=== PATIENT | female | born 1985 ===

== ENCOUNTER 2019-04-21 10:04 | Emergency (ER) | payer SELFPAY ==
[2019-04-21 10:40] LABS: Absolute Lymphocytes (CBC) 1.3 K/uL (0.7-4.9); Absolute Monocytes 0.7 K/uL (0.1-1.3); Basophils % 0.5 % (0-1.3); Eosinophils % 2.9 % (0-4.4); Hematocrit 39.1 % (36.0-45.0); Lymphocytes % 18.1 % (15.3-44.8); MPV 8.3 fL (7.6-11.3); Monocytes % 10.2 % (3.3-12.3); RBC Red Blood Cell Count 4.26 M/uL (3.86-4.86)
[2019-04-21] MEDS ORDERED: ONDANSETRON 4 MG/2 ML VIAL ONE ×2 (10:45→11:36)
[2019-04-21] MEDS ORDERED: NA CHLORIDE 0.9% 1,000 ML ONE (10:45)
[2019-04-21] MEDS ORDERED: MORPHINE 4 MG/ML SYR ONE ×2 (10:45→11:36)
[2019-04-21 10:58] LABS: Albumin 3.7 g/dL (3.4-5.0); Bilirubin Direct 0.1 mg/dL (0-0.2); Bilirubin Total 0.3 mg/dL (0.2-1.0); Potassium 3.6 mmol/L (3.5-5.1); Protein, Total 7.1 g/dL (6.4-8.2)
--- NOTE | 2019-04-21 11:31 | RAD REPORT ---
EXAM DESCRIPTION: CT - Stone Protocol - 04/21/2019 10:57 am CLINICAL HISTORY: Abdominal pain. Left flank pain COMPARISON: None. TECHNIQUE: Computed axial tomography of the abdomen pelvis was obtained without oral or IV contrast. Lack of IV and oral contrast limits evaluation of solid organs, bowel, and vessels. Coronal reformat raz images were obtained and reviewed. All CT scans are performed using dose optimization technique as appropriate and may include automated exposure control or mA/KV adjustment according to patient size. FINDINGS: A renal calculus is not seen. A bladder calculus is not present. Mild left hydronephrosis. 2 millimeter calculus left ureteral vesicle junction. The liver, spleen, pancreas and adrenals appear grossly normal There is no evidence of diverticulitis. The appendix appears normal A tiny umbilical hernia Left ovary is not well visualized but may be enlarged IMPRESSION: 2 millimeter calculus left ureterovesical junction resulting in mild left hydronephrosis Possible enlargement of the left ovary. Ultrasound recommended
[2019-04-21 11:32] LABS: Urine Blood 2+ (NEG); Urine Glucose NEGATIVE (NEG); Urine Protein NEGATIVE (NEG); Urine Specific Gravity 1.025 (1.005-1.030); Urine pH 5.5 (5.0-7.0)
--- NOTE | 2019-04-21 11:42 | ER ---
Nurse's Notes [facility] Name: Jocelynn Mcdonald Age: 33 yrs Sex: Female : 1985 Arrival Date: 04/21/2019 Time: 10:05 Bed 18 Private MD: Unknown, Unknown Diagnosis: Calculus of kidney and ureter Presentation: 04/21 10:10 Presenting complaint: Patient states: left flank pain that radiates to the left groin, sv n/v started this morning. Transition of care: patient was not received from another setting of care. Onset of symptoms was April 21, 2019. Care prior to arrival: None. 10:10 Method Of Arrival: Ambulatory sv 10:10 Acuity: CHIN 2 sv 12:48 Initial Sepsis Screen: Does the patient meet any 2 criteria? No. Patient's initial ae3 sepsis screen is negative. Does the patient have a suspected source of infection? No. Patient's initial sepsis screen is negative. 12:48 Risk Assessment: Do you want to hurt yourself or someone else? Patient reports no ae3 desire to harm self or others. Triage Assessment: 10:10 General: Appears in no apparent distress. uncomfortable, well developed, Behavior is sv cooperative, anxious. Pain: Complains of pain in left low back and posterior aspect of left lateral abdomen Pain radiates to left femoral area and left inguinal area Pain currently is 10 out of 10 on a pain scale. Neuro: Level of Consciousness is awake, alert, obeys commands, Oriented to person, place, time, situation, Gait is steady. Respiratory: Respiratory effort is even, unlabored, Respiratory pattern is regular, symmetrical. : Reports urgency. Derm: Skin is normal. 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 - Social history:: Patient/guardian denies using alcohol, street drugs, The patient lives with family, Smoking status: Patient uses tobacco products, smokes one-half pack cigarettes per day. - Family history:: not pertinent. - Ebola Screening: : Patient negative for fever greater than or equal to 101.5 degrees Fahrenheit, and additional compatible Ebola Virus Disease symptoms Patient denies exposure to infectious person Patient denies travel to an Ebola-affected area in the 21 days before illness onset. Screenin:50 Abuse screen: Denies threats or abuse. Nutritional screening: No deficits noted. ae3 Tuberculosis screening: No symptoms or risk factors identified. Fall Risk None identified. Assessment: 10:28 General: Appears uncomfortable, Behavior is cooperative, anxious, restless. Pain: ae3 Complains of pain in left low back, left mid back and abdomen Pain currently is 10 out of 10 on a pain scale. Neuro: Level of Consciousness is awake, alert, obeys commands, Oriented to person, place, time, situation, Appropriate for age. Cardiovascular: Respiratory: Airway is patent Respiratory effort is even, unlabored, Respiratory pattern is regular. GI: Abdomen is round Bowel sounds present X 4 quads. Abd is soft and non tender. GI: Reports nausea, vomiting, Patient currently denies diarrhea. : Reports burning with urination, urinary frequency. EENT: No signs and/or symptoms were reported regarding the EENT system. Derm: Skin is pink. Musculoskeletal: No signs and/or symptoms reported regarding the musculoskeletal system. 11:05 Reassessment: Patient is requesting additional pain medication, reports " I still have ae3 pain.". Pain: Pain currently is 7 out of 10 on a pain scale. 11:05 Reassessment: Provider notified of patient's pain level, new orders received. ae3 11:09 Pain: Complains of pain in abdomen Pain currently is 7 out of 10 on a pain scale. ae3 11:41 Reassessment: Pain decreased, states she keeps feeling like "I need to pee" bedside ae3 commode provided. 11:46 Reassessment: Updated patient on impending discharge, patient states she still has ae3 pain. Will continue to monitor. Vital Signs: 10:11 Pulse 74; Resp 18; Temp 97.8; Pulse Ox 99% ; Weight 86.18 kg; Height 5 ft. 1 in. sv (154.94 cm); Pain 10/10; 10:48 BP 149 / 92; Pulse 63; Resp 20; Pulse Ox 100% on R/A; ae3 11:06 BP 148 / 94; Pulse 61; Resp 19; Pulse Ox 99% on R/A; Pain 7/10; ae3 11:42 BP 148 / 99; Pulse 65; Resp 17; Pulse Ox 98% on R/A; ae3 12:46 BP 140 / 90; Pulse 78; Resp 16; Pulse Ox 100% on R/A; Pain 5/10; ae3 10:11 Body Mass Index 35.90 (86.18 kg, 154.94 cm) sv 10:11 Pt took off BP cuff, unable to tolerate at this time. sv ED Course: 10:05 Patient arrived in ED. ag5 10:06 Unknown, Unknown is Private Physician. ag5 10:11 Triage completed. sv 10:11 Arm band placed on. sv 10:13 Ya Isbell MD is Attending Physician. ma2 10:30 Radiology exam delayed due to test not completed at this time. kw1 10:38 Initial lab(s) drawn, by id, sent to lab. Urine collected: clean catch specimen, clear. 5 Inserted saline lock: 20 gauge in left antecubital area, using aseptic technique. Blood collected. 10:40 Basic Metabolic Panel Sent. 5 10:40 CBC with Diff Sent. 5 10:40 Creatinine for Radiology Sent. 5 10:40 Hepatic Function Sent. 5 10:40 Lipase Sent. 5 10:49 Placed in gown. Bed in low position. Call light in reach. Side rails up X 1. Adult w/ ae3 patient. Pulse ox on. NIBP on. Light sheet provided. 10:[address] In Process Unspecified. EDMS 11:41 Christelle Knutson MD is Referral Physician. ma2 12:49 No provider procedures requiring assistance completed. IV discontinued, intact, ae3 bleeding controlled, No redness/swelling at site. Pressure dressing applied. Administered Medications: 10:30 Drug: NS 0.9% 1000 ml Route: IV; Rate: 1 bolus; Site: left antecubital; ae3 12:00 Follow up: IV Status: Completed infusion ae3 10:30 Drug: Zofran 4 mg Route: IVP; Site: left antecubital; ae3 11:30 Follow up: Response: Nausea is decreased ae3 10:35 Drug: morphine 4 mg Route: IVP; Site: left antecubital; ae3 11:29 Follow up: Response: Pain is decreased; Patient states pain is reduced but still "hurts ae3 a lot" Reports 06/04 currently 11:20 Drug: Zofran 4 mg Route: IVP; Site: left antecubital; ae3 11:43 Follow up: Response: No adverse reaction ae3 11:23 Drug: morphine 4 mg Route: IVP; Site: left antecubital; ae3 11:43 Follow up: Response: Pain is decreased ae3 12:25 Drug: Phenergan 25 mg Route: IVP; Site: left antecubital; ae3 12:47 Follow up: Response: Nausea is decreased ae3 Intake: Outcome: 11:42 Discharge ordered by . ma2 12:49 Discharged to home via wheelchair. ae3 12:49 Condition: stable 12:49 Discharge instructions given to patient, significant other, Instructed on discharge instructions, follow up and referral plans. medication usage, Demonstrated understanding of instructions, follow-up care, medications. 12:59 Patient left the ED. ae3 Signatures: Dispatcher [employer] EDRhona Owens RN RN sv Martinez, Maria Dulce Contreras Mohammad, MD MD ma2 Duane Yap5 Josselin Aguila ae3 Corrections: (The following items were deleted from the chart) 10:14 10:11 Pulse 74bpm; Resp 18bpm; Pulse Ox 99%; Temp 97.8F; 86.18 kg; Height 5 ft. 1 in.; sv BMI: 35.9; Pain 09/04; sv
--- NOTE | 2019-04-21 11:43 | EDPHYS ---
Physician Documentation [facility] Name: Jocelynn Mcdonald Age: 33 yrs Sex: Female : 1985 Arrival Date: 04/21/2019 Time: 10:05 Bed 18 Private MD: Unknown, Unknown ED Physician Ya Isbell HPI: 04/21 11:19 This 33 yrs old Female presents to ER via Ambulatory with complaints of Possible Kidney ma2 Stone, Back Pain, Nausea/Vomiting. 11:19 The patient presents with pain left flank pain. The symptoms are located in the. Onset: ma2 The symptoms/episode began/occurred gradually, 1 day(s) ago. The pain does not radiate. Associated signs and symptoms: Pertinent negatives: chest pain, dysuria, incontinence, nausea. Severity of symptoms: At their worst the symptoms were moderate, in the emergency department the symptoms have improved. The patient has not experienced similar symptoms in the past, The patient has experienced similar episodes in the past. 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 - Social history:: Patient/guardian denies using alcohol, street drugs, The patient lives with family, Smoking status: Patient uses tobacco products, smokes one-half pack cigarettes per day. - Family history:: not pertinent. - Ebola Screening: : Patient negative for fever greater than or equal to 101.5 degrees Fahrenheit, and additional compatible Ebola Virus Disease symptoms Patient denies exposure to infectious person Patient denies travel to an Ebola-affected area in the 21 days before illness onset. ROS: 11:19 Constitutional: Negative for fever, chills, and weight loss, Cardiovascular: Negative ma2 for chest pain, palpitations, and edema, Respiratory: Negative for shortness of breath, cough, wheezing, and pleuritic chest pain, Back: Negative for injury and pain, MS/Extremity: Negative for injury and deformity, Allergy/Immunology: Negative for hives, rash, and allergies, Endocrine: Negative for neck swelling, polydipsia, polyuria, polyphagia, and marked weight changes. 11:19 Abdomen/GI: Positive for abdominal pain, Negative for diarrhea, flatulence. Exam: 11:19 Constitutional: This is a well developed, well nourished patient who is awake, alert, ma2 and in no acute distress. Head/Face: Normocephalic, atraumatic. Neck: Trachea midline, no thyromegaly or masses palpated, and no cervical lymphadenopathy. Supple, full range of motion without nuchal rigidity, or vertebral point tenderness. No Meningismus. Chest/axilla: Normal chest wall appearance and motion. Nontender with no deformity. No lesions are appreciated. Cardiovascular: Regular rate and rhythm with a normal S1 and S2. No gallops, murmurs, or rubs. Normal PMI, no JVD. No pulse deficits. Respiratory: Lungs have equal breath sounds bilaterally, clear to auscultation and percussion. No rales, rhonchi or wheezes noted. No increased work of breathing, no retractions or nasal flaring. Abdomen/GI: Soft, non-tender, with normal bowel sounds. No distension or tympany. No guarding or rebound. No evidence of tenderness throughout. Back: No spinal tenderness. No costovertebral tenderness. Full range of motion. Skin: Warm, dry with normal turgor. Normal color with no rashes, no lesions, and no evidence of cellulitis. MS/ Extremity: Pulses equal, no cyanosis. Neurovascular intact. Full, normal range of motion. Neuro: Awake and alert, GCS 15, oriented to person, place, time, and situation. Cranial nerves II-XII grossly intact. Motor strength 5/5 in all extremities. Sensory grossly intact. Cerebellar exam normal. Normal gait. Vital Signs: 10:11 Pulse 74; Resp 18; Temp 97.8; Pulse Ox 99% ; Weight 86.18 kg; Height 5 ft. 1 in. sv (154.94 cm); Pain 10/10; 10:48 BP 149 / 92; Pulse 63; Resp 20; Pulse Ox 100% on R/A; ae3 11:06 BP 148 / 94; Pulse 61; Resp 19; Pulse Ox 99% on R/A; Pain 7/10; ae3 11:42 BP 148 / 99; Pulse 65; Resp 17; Pulse Ox 98% on R/A; ae3 12:46 BP 140 / 90; Pulse 78; Resp 16; Pulse Ox 100% on R/A; Pain 5/10; ae3 10:11 Body Mass Index 35.90 (86.18 kg, 154.94 cm) sv 10:11 Pt took off BP cuff, unable to tolerate at this time. sv MDM: 10:13 Patient medically screened. ma2 11:19 Differential diagnosis: Hydronephrosis sprain, Ureterolithiasis. ma2 11:41 Data reviewed: vital signs, nurses notes. Counseling: I had a detailed discussion with ma2 the patient and/or guardian regarding: the historical points, exam findings, and any diagnostic results supporting the discharge/admit diagnosis, the presence of at least one elevated blood pressure reading (>120/80) during this emergency department visit. Response to treatment: the patient's symptoms have resolved after treatment. 04/21 10:18 Order name: Basic Metabolic Panel; Complete Time: 11:23 [facility] 04/21 10:18 Order name: CBC with Diff; Complete Time: 11:23 [facility] 04/21 10:18 Order name: Creatinine for Radiology; Complete Time: 11: [facility] 04/21 10:18 Order name: Hepatic Function; Complete Time: 11:23 [facility] 04/21 10:18 Order name: Lipase; Complete Time: 11:23 [facility] 04/21 10:55 Order name: Urine Dipstick--Ancillary (enter results); Complete Time: 11:42 04/21 10:18 Order name: Stone Protocol CT; Complete Time: 11:42 [facility] 04/21 10:55 Order name: Urine --Ancillary (enter results); Complete Time: 11:42 04/21 10:18 Order name: IV Saline Lock; Complete Time: 10:25 [facility] 04/21 10:18 Order name: Labs collected and sent; Complete Time: 10:25 [facility] 04/21 10:18 Order name: Urine Dipstick-Ancillary (obtain specimen); Complete Time: 10:40 ma2 Administered Medications: 10:30 Drug: NS 0.9% 1000 ml Route: IV; Rate: 1 bolus; Site: left antecubital; ae3 12:00 Follow up: IV Status: Completed infusion ae3 10:30 Drug: Zofran 4 mg Route: IVP; Site: left antecubital; ae3 11:30 Follow up: Response: Nausea is decreased ae3 10:35 Drug: morphine 4 mg Route: IVP; Site: left antecubital; ae3 11:29 Follow up: Response: Pain is decreased; Patient states pain is reduced but still "hurts ae3 a lot" Reports 06/04 currently 11:20 Drug: Zofran 4 mg Route: IVP; Site: left antecubital; ae3 11:43 Follow up: Response: No adverse reaction ae3 11:23 Drug: morphine 4 mg Route: IVP; Site: left antecubital; ae3 11:43 Follow up: Response: Pain is decreased ae3 12:25 Drug: Phenergan 25 mg Route: IVP; Site: left antecubital; ae3 12:47 Follow up: Response: Nausea is decreased ae3 Disposition: 04/21/19 11:42 Discharged to Home. Impression: Calculus of kidney and ureter. - Condition is Stable. - Prescriptions for Tylenol- Codeine #3 300-30 mg Oral Tablet - take 2 tablet by ORAL route every 6 hours As needed; 30 tablet. Zofran 8 mg Oral Tablet - take 1 tablet by ORAL route every 12 hours As needed; 20 tablet. Flomax 0.4 mg Oral Capsule, Sust. Release 24 hr - take 1 capsule by ORAL route once daily 1/2 hour following the same meal each day; 30 capsule. promethazine 25 mg Oral Tablet - take 1 tablet by ORAL route every 6 hours As needed; 20 tablet. - Medication Reconciliation Form, Thank You Letter, Antibiotic Education, Prescription Opioid Use form. - Follow up: Christelle Knutson MD; When: Tomorrow; Reason: Continuance of care. Signatures: Dispatcher [employer] Rhona De La O RN RN Ya Isbell MD MD ma2 Josselin Aguila ae3 Corrections: (The following items were deleted from the chart) 12:59 11:42 04/21/2019 11:42 Discharged to Home. Impression: Calculus of kidney and ureter. ae3 Condition is Stable. Prescriptions for Tylenol-Codeine #3 300-30 mg Oral Tablet - take 2 tablet by ORAL route every 6 hours As needed; 30 tablet, Zofran 8 mg Oral Tablet - take 1 tablet by ORAL route every 12 hours As needed; 20 tablet, Flomax 0.4 mg Oral Capsule, Sust. Release 24 hr - take 1 capsule by ORAL route once daily 1/2 hour following the same meal each day; 30 capsule. and Forms are Medication Reconciliation Form, Thank You Letter, Antibiotic Education, Prescription Opioid Use. Follow up: Christelle Knutson; When: Tomorrow; Reason: Continuance of care. ma2
[2019-04-21] MEDS ORDERED: PROMETHAZINE 25 MG/ML VIAL ONE (12:38)
== END 2019-04-21 12:59 | disposition home or self-care (01) ==
LOC: ER 10:04
DX: N20.2 Calculus of kidney with calculus of ureter (principal); F17.210 Nicotine dependence, cigarettes, uncomplicated
CPT/HCPCS: 36415; 74176; 76377; 80048; 80076; 81003; 81025; 83690; 85025; 96361; 96374; 96375; 99284; J2405; J2550; J7030